=== PATIENT | male | born 1955 | race Caucasian/White ===

== ENCOUNTER 2017-06-28 10:07 | Day surgery (SDC) | payer OTHER ==
[~2017-06-28] VITALS: Ht 162.6 cm; Wt 90.0 kg
[~2017-06-28 10:07] MED LIST: ASPI-306; CALC1TAB32; CARV6.2579; CEPH500C PO; ESOM40CA; FENO145T25; FURO20TA3; GABAPENTIN; HYDR-906 PO; INSU100I28; ISOS60TA52; LINA1TAB5; MELO-110; RANO500T2; REPA1TAB14; SIMV-39; TAMS-14; VALS80TA2 PO
[2017-06-28 10:52] VITALS: Ht 162.6 cm; Wt 90.0 kg
[2017-06-28] MEDS ORDERED: AMLO5TAB4 PO (10:52)
[2017-06-28] MEDS ORDERED: ASPI325T4 PO (10:53)
[2017-06-28] MEDS ORDERED: CARV6.25 PO (10:54)
[2017-06-28 10:55] VITALS: BP 141/68; PULSE 65; RESP 18
[2017-06-28] MEDS ORDERED: ESOM40CA PO (10:55)
[2017-06-28] MEDS ORDERED: FURO20TA3 PO (10:55)
[2017-06-28] MEDS ORDERED: GLYB5TAB3 PO (10:56)
[2017-06-28] MEDS ORDERED: NPH,100V SQ (10:57)
[2017-06-28] MEDS ORDERED: ISOS5TAB2 PO (10:58)
[2017-06-28] MEDS ORDERED: LANT3I SC (10:58)
[2017-06-28] MEDS ORDERED: LOSA100T7 PO (10:59)
[2017-06-28] MEDS ORDERED: MTF1000T PO (10:59)
[2017-06-28] MEDS ORDERED: MELO-109 PO (10:59)
[2017-06-28] MEDS ORDERED: CALC500T11 PO (11:00)
[2017-06-28] MEDS ORDERED: SIMV40TA2 PO (11:01)
[2017-06-28] MEDS ORDERED: TAMS0.4C2 PO (11:02)
[2017-06-28 11:09] LABS: BASOPHILS % 0.4 % (0.0-2.0); EOSINOPHILS # 0.1 10^3/ul (0.0-0.5); EOSINOPHILS % 1.2 % (0.0-7.0); HEMOGLOBIN 14.5 g/dl (14.0-18.0); LYMPHOCYTES # 1.6 10^3/ul (0.8-2.9); LYMPHOCYTES % 18.7 % (15.0-51.0); MEAN CORPUSCULAR HEMOGLOBIN 30.5 pg (29.0-33.0); MEAN CORPUSCULAR HGB CONC 33.7 g/dl (32.0-37.0); MEAN CORPUSCULAR VOLUME 90.5 fl (82.0-101.0); MEAN PLATELET VOLUME 11.6 fl (7.4-10.4); MONOCYTE # 0.5 10^3/ul (0.3-0.9); MONOCYTES % 5.7 % (0.0-11.0); NEUTROPHIL # 6.2 10^3/ul (1.6-7.5); NEUTROPHILS % 73.4 % (39.0-77.0); PLATELET COUNT 148 10^3/UL (140-415); RED BLOOD COUNT 4.75 10^6/ul (4.70-6.10); WHITE BLOOD COUNT 8.4 10^3/ul (4.8-10.8)
[2017-06-28 11:29] LABS: INR 1.04; PROTIME 13.6 Sec (12.2-14.2); PT RATIO 1.1
[2017-06-28 11:30] LABS: PARTIAL THROMBOPLASTIN TIME 31.3 Sec (25.0-35.0)
[2017-06-28 11:32] LABS: ALBUMIN 4.3 g/dl (3.3-4.9); ALBUMIN/GLOBULIN RATIO 1.26; BILIRUBIN,INDIRECT 0.6 mg/dl (0-1.1); BILIRUBIN,TOTAL 0.6 mg/dl (0.2-1.3); TOTAL PROTEIN 7.7 g/dl (6.1-8.1)
[2017-06-28 11:42] LABS: POTASSIUM 4.9 mmol/L (3.5-5.1)
[2017-06-28 11:45] LABS: CALCIUM 9.9 mg/dl (8.4-10.2); CREATININE 1.07 mg/dl (0.61-1.24)
[2017-06-28] MEDS ORDERED: HEPARIN 1000 UNITS/NS (A-LINE) 1,000 ML ONE (11:49)
[2017-06-28] MEDS ORDERED: IODIXANOL LOCM 100 ML BTL ONE (11:49)
[2017-06-28] MEDS ORDERED: HEPARIN 1000 UNITS/ML 10 ML INJ ONE (11:49)
[2017-06-28] MEDS ORDERED: LIDOCAINE 1% (MDV) 20 ML INJ ONE (11:49)
[2017-06-28] MEDS ORDERED: MIDAZOLAM 1 MG/ML 2 ML INJ ONE (11:49)
[2017-06-28] MEDS ORDERED: FENTAnyl 50 MCG/ML VIAL ONE (11:50)
== END 2017-06-28 13:15 | disposition home or self-care (01) ==
LOC: SDS 10:07 → EDBD 10:07 → SDS 13:15
PROVIDERS: ATTEND Surgery
DX: I70.213 Atherosclerosis of native arteries of extremities with intermittent claudication, bilateral legs (principal); Z53.8 Procedure and treatment not carried out for other reasons; I10 Essential (primary) hypertension; E11.9 Type 2 diabetes mellitus without complications; I25.10 Atherosclerotic heart disease of native coronary artery without angina pectoris; Z95.1 Presence of aortocoronary bypass graft
CPT/HCPCS: 80053; 82962; 85025; 85610; 85730; J1644; J2250; J3010; Q9967; Z7610

== ENCOUNTER 2017-07-12 08:39 | Day surgery (SDC) | payer OTHER ==
[~2017-07-12] VITALS: Ht 165.1 cm; Wt 93.0 kg
[2017-07-12] VITALS (11 sets, daily range): BP systolic 107–144; BP diastolic 51–70; PULSE 20–60; RESP 12–21; Ht 165.1 cm; Wt 93.0 kg
[~2017-07-12 08:39] MED LIST changes: +AMLO5TAB4 PO; -ASPI-306; +ASPI325T4 PO; -CALC1TAB32; +CALC500T11 PO; +CARV6.25 PO; -CARV6.2579; -CEPH500C PO; -ESOM40CA; +ESOM40CA PO; -FENO145T25; -FURO20TA3; +FURO20TA3 PO; -GABAPENTIN; +GLYB5TAB3 PO; -HYDR-906 PO; -INSU100I28; +ISOS5TAB2 PO; -ISOS60TA52; +LANT3I SC; -LINA1TAB5; +LOSA100T7 PO; -MELO-110; +MELO-216 PO; +MTF1000T PO; +NPH,100V SQ; -RANO500T2; -REPA1TAB14; -SIMV-39; +SIMV40TA2 PO; -TAMS-14; +TAMS0.4C2 PO; -VALS80TA2 PO
[2017-07-12] MEDS ORDERED: INSULIN ASPART [NOVOLOG] 3 ML PEN SC SCH (10:00)
[2017-07-12 10:03] LABS: BASOPHILS % 0.6 % (0.0-2.0); EOSINOPHILS # 0.1 10^3/ul (0.0-0.5); EOSINOPHILS % 1.7 % (0.0-7.0); HEMATOCRIT 38.9 % (42.0-52.0); HEMOGLOBIN 13.9 g/dl (14.0-18.0); LYMPHOCYTES # 1.7 10^3/ul (0.8-2.9); LYMPHOCYTES % 24.2 % (15.0-51.0); MEAN CORPUSCULAR HEMOGLOBIN 32.3 pg (29.0-33.0); MEAN CORPUSCULAR HGB CONC 35.7 g/dl (32.0-37.0); MEAN CORPUSCULAR VOLUME 90.3 fl (82.0-101.0); MEAN PLATELET VOLUME 11.7 fl (7.4-10.4); MONOCYTE # 0.5 10^3/ul (0.3-0.9); MONOCYTES % 6.9 % (0.0-11.0); NEUTROPHIL # 4.7 10^3/ul (1.6-7.5); PLATELET COUNT 131 10^3/UL (140-415); POSITIVE DIFF @See below; RED BLOOD COUNT 4.31 10^6/ul (4.70-6.10); RED CELL DISTRIBUTION WIDTH 13.3 % (11.5-14.5); WHITE BLOOD COUNT 7.1 10^3/ul (4.8-10.8)
[2017-07-12 10:05] LABS: PROTIME 13.2 Sec (12.2-14.2)
[2017-07-12 10:13] LABS: ALBUMIN 3.7 g/dl (3.3-4.9); ALBUMIN/GLOBULIN RATIO 1.05; BILIRUBIN,INDIRECT 0.1 mg/dl (0-1.1); BILIRUBIN,TOTAL 0.1 mg/dl (0.2-1.3); TOTAL PROTEIN 7.2 g/dl (6.1-8.1)
[2017-07-12 10:20] LABS: CALCIUM 9.7 mg/dl (8.4-10.2); CREATININE 0.92 mg/dl (0.61-1.24); POTASSIUM 3.9 mmol/L (3.5-5.1)
[2017-07-12] MEDS ORDERED: GLUCOSE GEL 15 GRAM TUBE PO PRN ×2 (10:30)
[2017-07-12] MEDS ORDERED: DEXTROSE 50% 50 ML SYRINGE IV PRN ×2 (10:30)
[2017-07-12] MEDS ORDERED: GLUCOSE GEL 15 GRAM TUBE BUCCAL PRN (10:30)
[2017-07-12] MEDS ORDERED: GLUCAGON 1 MG INJ IM PRN (10:30)
[2017-07-12] MEDS ORDERED: LIDOCAINE 1% (MDV) 20 ML INJ ONE (11:02)
[2017-07-12] MEDS ORDERED: HEPARIN 1000 UNITS/ML 10 ML INJ ONE ×2 (11:02→12:57)
[2017-07-12] MEDS ORDERED: MIDAZOLAM 1 MG/ML 2 ML INJ ONE ×3 (11:03→13:47)
[2017-07-12] MEDS ORDERED: FENTAnyl 50 MCG/ML VIAL ONE ×2 (11:03→11:50)
[2017-07-12] MEDS ORDERED: ALTEPLASE 100 MG INJ IV ONE (13:00)
[2017-07-12] MEDS ORDERED: IODIXANOL LOCM 100 ML BTL ONE (13:00)
--- NOTE | 2017-07-12 14:07 | RADRPT ---
Vent Rate: 60 bpm RR Interval: 0 msec ND Interval: 186 msec QRS Duration: 100 msec QT Interval: 402 msec QTC Interval: 402 msec P-R-T [place]: 44 - 42 - 0 degrees Normal sinus rhythm RSR apos; orattern in V1 suggests right ventricular conduction delay T wave abnormality, consider inferior ischemia Abnormal ECG Electronically Signed By: Tejinder Dan [id number]
[2017-07-12] MEDS ORDERED: morphine 10 MG INJ ONE (14:23)
--- NOTE | 2017-07-12 14:36 | SIPON ---
Date/Time of Note Date/Time of Note DATE: 07/12/17 TIME: 14:33 Operative Report Preoperative Diagnosis Severe RLE claudication Postoperative Diagnosis Same Operation/Procedure Performed Aortogram RLE angiogram w/ runoff Atherectomy/angioplasty w/ DCB to R SFA Aspiration of emboli to TPT/PT Stent/angioplasty of R iliac lesions Surgeon Burton Jacob MD occupational therapy assist N/A Anesthesia: moderate sedation Estimated blood loss: 10 - 50 ml's Transfusion Required none Specimen None Grafts/Implants none Complications none BURTON JACOB MD Jul 12, 2017 14:36
[2017-07-12] MEDS ORDERED: SOD CHLORIDE 0.45% 1,000 ML IV SCH (14:45)
[2017-07-12] MEDS ORDERED: ONDANSETRON 4 MG INJ IV PRN (15:00)
[2017-07-12] MEDS ORDERED: ACETAMINOPHEN 325 MG TAB PO PRN (15:00)
--- NOTE | 2017-07-13 09:16 | OPR ---
DATE OF OPERATION: 07/12/2017 PREOPERATIVE DIAGNOSIS: Severe right lower extremity claudication. POSTOPERATIVE DIAGNOSIS: Severe right lower extremity claudication. PROCEDURE: 1. Aortogram. 2. Right lower extremity angiogram with runoff, third order. 3. Atherectomy and angioplasty with drug-coated balloon of entire superficial femoral artery on the right. 4. Stenting of the right common and external iliac arteries. 5. Aspiration of distal emboli in the tibial vessels. SURGEON: Italo Parker M.D. ANESTHESIA: Monitored sedation and local. ESTIMATED BLOOD LOSS: 50 mL. SPECIMENS: None. COMPLICATIONS: Appearance of possible distal emboli in the tibial vessels, likely from drug coating of the drug-coated balloon. This was resolved after aspiration. ANGIOGRAPHIC FINDINGS: 1. Patent infrarenal aorta with diffuse calcified disease. 2. Patent left common and external iliac artery stents. 3. Patent, but severely diseased, distal common iliac and entire external iliac arteries on the right. 4. Patent common femoral artery with notable prior patch. 5. Severely diseased profunda femoral artery. 6. Diffuse severe disease of the right superficial femoral artery from its origin down to the level of the adductor. 7. Patent popliteal artery with moderate disease. 8. Patent tibioperoneal trunk with peroneal artery that is markedly small. 9. Patent posterior tibial artery with proximal disease and small caliber, but this makes it to the foot as a very small diseased plantar artery. 10. The anterior tibial artery is completely occluded. 11. Flow was markedly improved post intervention. PREOPERATIVE INDICATIONS: This is a 61-year-old gentleman with multiple medical conditions including severe peripheral vascular disease with previous interventions including bilateral femoral endarterectomies with left iliac artery stenting. The patient's symptoms improved; however, his right lower extremity symptoms recurred. The patient still smokes, but he is attempting diet and weight loss. Consistent exercise regimen with increased walking has failed. The patient now presents for angiogram with possible intervention. The indications, risks, and benefits of the procedure were discussed with the patient who understood and agreed to proceed. DESCRIPTION OF PROCEDURE: The patient was properly identified, brought to the angiography suite, and placed in the supine position. The patient's bilateral groins were prepped and draped in the usual sterile fashion. The patient was induced with monitored sedation throughout the entire course of the procedure. Ultrasound was used to evaluate the left common femoral artery. It was noted to be widely patent without any disease, given that he had a prior endarterectomy on this side. A micropuncture needle was used to access the artery; however, the MicroSheath was unable to be tracked. Therefore, the needle was removed and manual pressure was applied for hemostasis. Afterwards, a standard 18-gauge Access needle was used to access the area under ultrasound guidance. A Bentson wire was then advanced into the iliac system under fluoroscopy. A 5-Indonesian sheath was unable to be tracked; therefore, a 6-Ind[place]ian dilator was advanced and a 6- Indonesian sheath was successfully placed. This was followed by a flush catheter that was advanced into the infrarenal aorta. Aortogram was then performed with the findings as above. An angled Glidewire was then advanced and used to select the right iliac system with the flush catheter. The flush catheter was then exchanged for an angled glide catheter. The angled glide catheter was then placed into the right external iliac artery. The right lower extremity angiogram was then performed, with findings as above. Given these findings, intervention was planned. An 0.035 Advantage wire was then advanced through the glide catheter and a long 6-Indonesian sheath was then advanced. The patient was heparinized with 9000 units of heparin and after an hour 3000 units of additional heparin was administered. Next, using a floppy Glidewire and an angled glide catheter, the SFA lesions were traversed throughout and the catheter was placed in the popliteal artery. This was confirmed on angiography. Next, the 0.035 wire was exchanged for an 0.014 CrossIt wire. This was placed into the below-knee popliteal artery. A 2.2 [place] atherectomy device was then advanced and used for atherectomy with 2 passes throughout the entire length of the SFA. Afterwards, a 5-mm by various lengths drug-coated balloons for a total of 3 balloons were used to angioplasty the entire length of the atherectomized areas. Completion angiography demonstrated marked improvement in diameter and flow at the superficial femoral artery. The [id number]-rka-[id number] arterial flow was also improved; however, there was noted to be more sluggish flow in the posterior tibial artery than at the beginning of the procedure. Therefore, there was suspicion of possible emboli distally to this area. Thus, the 0.014 wire was then re- advanced and used to select initially the peroneal artery and an 0.014 rapid exchange portal Aspiration catheter was then advanced. This was used to aspirate the potential emboli from the peroneal and tibioperoneal trunk. Afterwards, the wire was used to select the posterior tibial artery after exchange with the 0.014 catheter. The portal device was then advanced to the mid posterior tibial artery and used for aspiration as well. With aspiration, there was retrieval of some white flaky material that appeared to resemble possibly the drug-coating of the drug- coated balloons. There was no thrombus that was noted. After this, there was noted to be still a significant lesion at the takeoff of the posterior tibial artery; however, the flow was improved and there was in-line flow down to the leg otherwise. The decision was made not to intervene at this artery currently given the patient's symptoms of only severe claudication. At this point, the devices were retracted and decision was made not to intervene on the profunda artery currently; however, the iliac artery stenosis needed to be treated. Therefore, the 0.035 Advantage wire was then re-advanced over the sheath. This was done after the devices were removed. This sheath was retracted back into the proximal right common iliac artery. Angiography confirmed the location and the size of the vessels. A 7-mm x 100 mm self-expanding stent was then deployed into the external iliac and into the area of the very distal common iliac artery. This was at the transition site. Next, an 8 x 40 mm balloon expandable stent was then advanced more proximally with a small overlap to the 7 mm stent. This was deployed successfully and afterwards a 10-mm balloon was used to over dilate the stent to get a larger size. An 8 x 100 mm balloon was then advanced into the 7-mm stent for post-dilation. Completion angiography demonstrated marked improvement in lumen diameter and flow. There were no other further issues. The devices were removed and the sheath was retracted into the right iliac system. The wire was re-advanced into the infrarenal aorta. Angiogram of the left femoral access site demonstrated it was amenable to a closure device; therefore, an Angio-Seal closure device was exchanged for the sheath and deployed, with good hemostasis. The patient tolerated the procedure well without any immediate complications. Dictated By: Itaol Parker M.D. /delbert/jenna /Document#: [id number] MTDD
== END 2017-07-12 18:05 | disposition home or self-care (01) ==
LOC: SDS 08:39
PROVIDERS: ATTEND Surgery
DX: I70.213 Atherosclerosis of native arteries of extremities with intermittent claudication, bilateral legs (principal); I25.10 Atherosclerotic heart disease of native coronary artery without angina pectoris; Z95.1 Presence of aortocoronary bypass graft; E11.9 Type 2 diabetes mellitus without complications; I10 Essential (primary) hypertension; F17.210 Nicotine dependence, cigarettes, uncomplicated; I74.3 Embolism and thrombosis of arteries of the lower extremities
CPT/HCPCS: 37186; 37221; 37223; 37225; 75625; 75710; 80053; 82962; 85025; 85610; 85730; 93005; J1644; J1815; J2250; J2270; J2997; J3010; Q9967; Z7610

== ENCOUNTER → 2018-11-25 | Outpatient (CLI) | payer OTHER ==
[~2018-11-25] MED LIST changes: +ASPI325T30 PO; -ASPI325T4 PO; +BARIUM SULFATE 135 ML (E-Z HD) PO ONE; +LOSA100T15 PO; -LOSA100T7 PO; -MELO-216 PO; +MELO7.5T38 PO; +SIMETH/SOD BICARB/CIT AC PKT (E-Z- GAS II) PO ONE
== END | disposition home or self-care (01) ==
LOC: RAD 09:39
PROVIDERS: ATTEND Internal Medicine Gastroenterology
DX: R13.10 Dysphagia, unspecified (principal)
CPT/HCPCS: 74230; Z7610

== ENCOUNTER 2019-01-07 08:38 | Day surgery (SDC) | payer OTHER ==
[2019-01-07] VITALS (16 sets, daily range): BP systolic 110–190; BP diastolic 54–70; PULSE 52–69; RESP 11–29; Ht 162.6 cm; Wt 96.1 kg
[~2019-01-07] VITALS: Ht 162.6 cm; Wt 96.1 kg
[~2019-01-07 08:38] MED LIST changes: -BARIUM SULFATE 135 ML (E-Z HD) PO ONE; +CIPRO 400 MG/200 ML D5W IVPB ONE; +CIPROFLOXACIN 400 MG in D5W 200 ML IVPB SCH; -SIMETH/SOD BICARB/CIT AC PKT (E-Z- GAS II) PO ONE
[2019-01-07] MEDS ORDERED: TAMS0.4C2 PO (09:19)
[2019-01-07] MEDS ORDERED: OMEP20CA16 PO (09:19)
[2019-01-07] MEDS ORDERED: AMLO-147 PO (09:20)
[2019-01-07] MEDS ORDERED: ESOM40CA PO (09:20)
[2019-01-07] MEDS ORDERED: CARV12.579 PO (09:20)
[2019-01-07] MEDS ORDERED: RANO10002 PO (09:21)
[2019-01-07] MEDS ORDERED: INSU100I33 SC (09:21)
[2019-01-07] MEDS ORDERED: BRIM15DR7 RIGHT EYE (09:22)
[2019-01-07] MEDS ORDERED: GABA100C14 PO (09:22)
[2019-01-07] MEDS ORDERED: LOSA1TAB25 PO (09:23)
[2019-01-07] MEDS ORDERED: SIMV40TA2 PO (09:23)
[2019-01-07] MEDS ORDERED: ESCI10TA PO (09:23)
[2019-01-07] MEDS ORDERED: METF850T13 PO (09:24)
[2019-01-07] MEDS ORDERED: UMEC62.5 IH (09:25)
[2019-01-07] MEDS ORDERED: CLOP75TA27 PO (09:25)
[2019-01-07] MEDS ORDERED: ASPI81TA52 PO (09:26)
--- NOTE | 2019-01-07 10:28 | HPN ---
Date/Time of Note Date/Time of Note DATE: 01/07/19 TIME: 10: Interval H&P Admission Note Pt. seen H&P reviewed: No system changes CARLOS GARRETT Jan 07, 2019 10:28
--- NOTE | 2019-01-07 10:36 | OPR ---
Date/Time of Note Date/Time of Note DATE: 01/07/19 TIME: 10:34 Operative Report Procedure Date: Jan 07, 2019 Preoperative Diagnosis BPH Postoperative Diagnosis Same Operation/Procedure Performed TURP Surgeon Deandre Porter Bath None Anesthesia Type: general Anesthesiologist: Elfego Arceo M.D. Estimated Blood Loss: none Transfusion none Specimen prostate Grafts/Implants none Tubes/Drains [address] Complications none Pt Condition Post Procedure: stable Disposition: PACU Indications [facility] Procedure Description dict [id number] CARLOS GARRETT Jan 07, 2019 10:36
--- NOTE | 2019-01-07 10:43 | PREAC ---
Date/Time of Note Date/Time of Note DATE: 01/07/19 TIME: 10:40 Anesthesia Eval and Record Evaluation Time Pre-Procedure Interview DATE: 01/07/19 TIME: 10:40 Age 63 Sex male NPO: 8 hrs Preoperative diagnosis Bladder Tumor Planned procedure Cystoscopy and TURBT Past Medical History Past Medical History: Includes Cardio: HTN, Dyslipidemia Endo: Diabetes GI: Obesity Surgery & Anesthesia Issues No known issue Meds Anticoagulation: No Beta Favian within 24 hr: Yes Reported Medications Aspirin (Low Dose Aspirin) 81 Mg Tablet.dr, 81 MG PO DAILY, #30 TAB 01/07/19 Clopidogrel Bisulfate (Clopidogrel) 75 Mg Tablet, 75 MG PO DAILY, #30 TAB 01/07/19 Umeclidinium [place] (Incruse Ellipta) 62.5 Mcg Blst.w.dev, 62.5 MCG IH DAILY 01/07/19 Metformin Hcl* (Metformin Hcl*) 850 Mg Tablet, 850 MG PO WITH BREAKFAST DINNE, #60 TAB 01/07/19 Simvastatin* (Zocor*) 40 Mg Tablet, 40 MG PO QHS, #30 TAB 01/07/19 Losartan-Hydrochlorothiazide (Losartan-HCTZ) 100-25 Mg Tab, 1 TAB PO DAILY, TAB 01/07/19 Escitalopram Oxalate* (Lexapro*) 10 Mg Tablet, 10 MG PO DAILY, #30 TAB 01/07/19 Gabapentin* (Gabapentin*) 100 Mg Capsule, 100 MG PO QHS, #90 CAP 01/07/19 Brimonidine Tartrate* (Brimonidine Tartrate*) 0.2%-15ML Drop Opht, 1 DROP RIGHT EYE BID, #1 EA 01/07/19 Insulin Glargine,Hum.rec.anlog (Basaglar Kwikpen U-100) 100 Unit/1 Ml Insuln.pen, 50 UNIT SC QHS, EA 01/07/19 Ranolazine* (Ranexa*) 1,000 Mg Tab.sr.12h, 1000 MG PO Q12, TAB 01/07/19 Carvedilol* (Carvedilol*) 12.5 Mg Tablet, 12.5 MG PO BID, #60 TAB 01/07/19 Amlodipine Besylate* (Amlodipine Besylate*) 10 Mg Tablet, 10 MG PO DAILY, #30 TAB 01/07/19 Esomeprazole Mag Trihydrate (Nexium) 40 Mg Capsule.dr, 40 MG PO DAILY, #30 CAP 01/07/19 Omeprazole* (Omeprazole*) 20 Mg Capsule.dr, 20 MG PO DAILY, #30 CAP 01/07/19 Tamsulosin Hcl* (Tamsulosin Hcl*) 0.4 Mg Cap.er.24h, 0.4 MG PO HS, CAP 01/07/19 Discontinued Reported Medications Tamsulosin Hcl* (Tamsulosin Hcl*) 0.4 Mg Cap.er.24h, 0.4 MG PO HS, CAP 06/28/17 Simvastatin* (Zocor*) 40 Mg Tablet, 40 MG PO QHS, #30 TAB 06/28/17 Calcium Carbonate (Oysco-500) 500 Mg Tablet, 500 MG PO BID, TAB 06/28/17 Metformin* (Glucophage*) 1,000 Mg Tablet, 1000 MG PO BID, #60 TAB 06/28/17 Meloxicam* (Meloxicam*) 7.5 Mg Tablet, 15 MG PO DAILY, #30 TAB 06/28/17 Losartan Potassium* (Losartan Potassium*) 100 Mg Tablet, 100 MG PO DAILY, TAB 06/28/17 Insulin Glargine* (Lantus*) 100 Unit/Ml Soln, 0 SC DAILY, #1 VIAL SLIDING SCALE 06/28/17 Isosorbide Dinitrate* (Isosorbide Dinitrate*) 5 Mg Tablet, 5 MG PO DAILY, TAB 06/28/17 Insulin NPH Human Isophane (Humulin N) 100 Unit/1 Ml Vial, 0 SQ AC MEALS, VIAL SLIDING SCALE 06/28/17 Glyburide* (Glyburide*) 5 Mg Tablet, 5 MG PO DAILY, #30 TAB 06/28/17 Furosemide* (Furosemide*) 20 Mg Tablet, 20 MG PO DAILY, #60 TAB 06/28/17 Esomeprazole Mag Trihydrate (Nexium) 40 Mg Capsule.dr, 40 MG PO DAILY, #30 CAP 06/28/17 Carvedilol* (Coreg*) 6.25 Mg Tablet, 6.25 MG PO BID, #60 TAB 06/28/17 Aspirin* (Aspirin*) 325 Mg Tablet, 325 MG PO DAILY, TAB 06/28/17 Amlodipine Besylate* (Norvasc*) 5 Mg Tablet, 5 MG PO DAILY, TAB 06/28/17 Current Medications Ciprofloxacin/ Dextrose 200 ml @ 200 mls/hr PREOP IVPB ; Start 01/07/19 at 06:00; Stop 01/07/19 at 19:00 Meds reviewed: Yes Allergies Coded Allergies: No Known Drug Allergy (Verified Allergy, Unknown, 01/07/19) Allergies Reviewed: Yes Labs/Studies Labs Reviewed: Reviewed by anesthesiologist test: N/A Studies: ECG (NSR), CXR (No Acute Disease) Pre-procedure Exam Last vitals Vital Signs Date Temp Pulse Resp B/P (MAP) Pulse Ox O2 O2 Flow FiO2 Time Delivery Rate 01/07/19 97.2 16 144/70 98 10:10 (94) Airway: Adequate mouth opening, Adequate thyromental dist Mallampati: Mallampati III Teeth: Normal Lung: Normal Heart: Normal ASA Physical Status ASA physical status: 3 Emergency: None Planned Anesthetic General/MAC: ETT Planned Pain Management Parenteral pain med Pre-operative Attestations Prior to commencing anesthesia and surgery, the patient was re-evaluated, there was verification of: *The patient's identity *The results of appropriate recent lab work and preoperative vital signs *The above evaluation not changing prior to induction *Anesthetic plan, risk benefits, alternative and complications discussed with patient/family; questions answered; patient/family understands, accepts and wishes to proceed. THONY MARTINEZ MD Jan 07, 2019 10:43
[2019-01-07] MEDS ORDERED: ETOMIDATE 20 MG INJ ONE (10:57)
[2019-01-07] MEDS ORDERED: ROCURONIUM 50 MG INJ ONE (10:57)
[2019-01-07] MEDS ORDERED: MIDAZOLAM 1 MG/ML 2 ML INJ ONE (10:59)
[2019-01-07] MEDS ORDERED: FENTAnyl 50 MCG/ML VIAL ONE (10:59)
[2019-01-07] MEDS ORDERED: hydrALAzine 20 MG INJ ONE (11:07)
[2019-01-07] MEDS ORDERED: KETOROLAC 30 MG INJ ONE (11:34)
[2019-01-07] MEDS ORDERED: ONDANSETRON 4 MG INJ ONE (11:34)
[2019-01-07] MEDS ORDERED: SUGAMMADEX SODIUM 200 MG/2 ML VIAL IV ONE (11:34)
[2019-01-07] MEDS ORDERED: DEXAMETHASONE 4 MG/ML 5 ML INJ ONE (11:34)
[2019-01-07] MEDS ORDERED: METOCLOPRAMIDE 10 MG INJ ONE (11:34)
--- NOTE | 2019-01-07 11:50 | PAC ---
Date/Time of Note Date/Time of Note DATE: 01/07/19 TIME: 11:50 Post-Anesthesia Notes Post-Anesthesia Note Last documented vital signs Vital Signs Date Temp Pulse Resp B/P (MAP) Pulse Ox O2 O2 Flow FiO2 Time Delivery Rate 01/07/19 97.6 69 16 144/70 98 10:10 (94) Activity: WNL Respiratory function: WNL Cardiovascular function: WNL Mental status: Baseline Pain reasonably controlled: Yes Hydration appropriate: Yes Nausea/Vomiting absent: Yes THONY MARTINEZ MD Jan 07, 2019 11:50
[2019-01-07] MEDS ORDERED: EPHEDrine SULFATE 50 MG/5 ML SYG IV PRN (12:00)
[2019-01-07] MEDS ORDERED: DIPHENHYDRAMINE 50 MG INJ IV PRN (12:00)
[2019-01-07] MEDS ORDERED: MITOMYCIN 20 MG IRR SCH (12:00)
[2019-01-07] MEDS ORDERED: MITOMYCIN 40 MG VIAL IRR SCH (12:00)
[2019-01-07] MEDS ORDERED: MEPERIDINE 25 MG INJ IV PRN (12:00)
[2019-01-07] MEDS ORDERED: LABETALOL HCL 20MG INJ IV PRN (12:00)
[2019-01-07] MEDS ORDERED: ONDANSETRON 4 MG INJ IV PRN (12:00)
[2019-01-07] MEDS ORDERED: hydrALAzine 20 MG INJ IV PRN (12:00)
[2019-01-07] MEDS ORDERED: FENTAnyl 50 MCG/ML VIAL IV PRN ×3 (12:00)
[2019-01-07] MEDS ORDERED: HYDROmorphONE 1 MG/5 ML IV SYRINGE IV PRN ×3 (12:00)
[2019-01-07] MEDS ORDERED: HYDROmorphONE 1 MG/5 ML IV SYRINGE IV ONE (12:10)
--- NOTE | 2019-01-07 12:33 | PDOCDIS ---
Discharge Instructions DIAGNOSIS Discharge Diagnosis Bladder Cancer CONDITION Veronica Patient Condition: [id number] Fair HOME CARE INSTRUCTIONS: Veronica Diet Instructions: João Reduced Sodium ACTIVITY: Veronica Activity Restrictions: [id number] Slowly Increase Activity [id number] Bathing Restrictions: [id number] Shower FOLLOW UP/APPOINTMENTS Follow-up Plan Call office for date and time to remove franklin next week REFERRALS Veronica Referring Provider: CARLOS Perdue Other Referrals none OTHER ORDERS: Other Orders: Franklin to leg bag Resume aspirin and plavix in am as long as urine is clear, call office for any questions or concerns CARLOS GARRETT Jan 07, 2019 12:33
--- NOTE | 2019-01-07 12:36 | OPR ---
Date/Time of Note Date/Time of Note DATE: 01/07/19 TIME: 12:34 Operative Report Procedure Date: Jan 07, 2019 Preoperative Diagnosis Bladder cancer Postoperative Diagnosis same Operation/Procedure Performed TURBT and mitomycin Surgeon satish Single Corner Cutter jackie Anesthesia Type: general Estimated Blood Loss: none Transfusion none Specimen bladder tumor Grafts/Implants none Tubes/Drains [address] Complications none Pt Condition Post Procedure: stable Disposition: PACU Indications bladder cancer Procedure Description dict [id number] CARLOS GARRETT Jan 07, 2019 12:36
--- NOTE | 2019-01-07 14:36 | OPR ---
DATE OF OPERATION: PREOPERATIVE DIAGNOSIS: Bladder cancer. POSTOPERATIVE DIAGNOSIS: Bladder cancer. PROCEDURES: Cystoscopy, transurethral resection of large bladder tumor and multiple satellite bladde r tumors, instillation of mitomycin. SURGEON: Av Garrett MD ANESTHESIA: General. COMPLICATIONS: None. FINDINGS: Large bladder tumor on the trigone extending to the posterior wall with multiple satellite bladder tumor surrounding this region. PATHOLOGY: Bladder tumor. COMPLICATIONS: None. DRAINS: A 20-[place] 2-way Rich catheter. PROCEDURE IN DETAILS: The patient was brought into the operating room and placed on the operating ro om table in the supine lithotomy position. He was prepped and draped in the usual fashion after anes thesia was induced. A timeout was undertaken. Appropriate pressure points were padded. He received preoperative antibiotic therapy. Sequential compression devices were applied. Rigid cystoscopy was undertaken with a 12-degree, 30-degree and 70-degree angle lens. No abnormalities of the anterior u rethra could be appreciated. Trilobar enlargement of the prostatic lobes was noted with a very elong ated prostatic fossa. It was difficult to insert the rigid cystoscope into the bladder due to morbid obesity and enlarged median lobe with high bladder neck. With gentle manipulation, this was inserte d in an atraumatic fashion. The bladder was then inspected in a systematic fashion. Due to marked t rabeculation, I could not find the ureteral orifices. The trigone extending to the posterior wall wa s a large papillary bladder tumor with multiple satellite tumors adjacent to this area. No other juanpablo dder cancer could be appreciated. Transurethral resection of the bladder tumor was undertaken with t he unipolar resectoscope. Tissue was excised with large portion of the tissue also being coagulated with cauterization so as not to cause a perforation when the bladder of tumor was resected and coagul ated down to its base. Pinpoint hemostasis was obtained. No noted perforation could be appreciated. There was no active bleeding. Subsequently, the chips were removed with an ShopSuey evacuator and 2-w ay Rich catheter was inserted and the efflux was crystal clear. Subsequently, 40 mg of mitomycin wa s then instilled into the bladder and the catheter was clamped. This will be retained was 40 minutes . He will be then discharged to home on [place] 5/325 one tab p.o. q.6 hours p.r.n., dispensed # 30, n o refill. He will follow up in the office on Saturday for a trial of void. Further intervention evalu ation pending clinical course and results of above. Additionally, the patient has been instructed to resume his Plavix and aspirin in the morning time. Dictated By: AV GARRETT MD EGR/NTS Conf#: [id number] DID#: [id number]
== END 2019-01-07 14:41 | disposition home or self-care (01) ==
LOC: SDS 08:38
PROVIDERS: ATTEND Urology
DX: C67.9 Malignant neoplasm of bladder, unspecified (principal); I10 Essential (primary) hypertension; E11.9 Type 2 diabetes mellitus without complications; E78.5 Hyperlipidemia, unspecified; E66.9 Obesity, unspecified
CPT/HCPCS: 52234; 82962; 88305; J0360; J0744; J1100; J1170; J1885; J2250; J2405; J2765; J3010; J9280; Z7512; Z7610

== ENCOUNTER 2019-06-12 06:34 | Observation (INO) | payer OTHER ==
[~2019-06-12] VITALS: Ht 165.1 cm; Wt 92.7 kg
[2019-06-12] VITALS (26 sets, daily range): BP systolic 110–159; BP diastolic 61–80; PULSE 52–97; RESP 13–20; Ht 165.1 cm; Wt 92.7 kg
[~2019-06-12 06:34] MED LIST changes: +AMLO-147 PO; -AMLO5TAB4 PO; -CALC500T11 PO; +CARV12.579 PO; -CARV6.25 PO; -CIPRO 400 MG/200 ML D5W IVPB ONE; -CIPROFLOXACIN 400 MG in D5W 200 ML IVPB SCH; +CLOP75TA27 PO; +ESCI10TA PO; -ESOM40CA PO; -GLYB5TAB3 PO; +IBUP-1542 PO; +INSU100I33 SC; -ISOS5TAB2 PO; -LANT3I SC; -LOSA100T15 PO; -MELO7.5T38 PO; +METF850T13 PO; -MTF1000T PO; -NPH,100V SQ; +RANO10002 PO; -TAMS0.4C2 PO; +TEMA15CA PO; +UMEC62.5 IH
[2019-06-12] MEDS ORDERED: CEFTRIAXONE 1 GM/NS 50 ML IVPB ONE (07:00)
[2019-06-12] MEDS ORDERED: OXYCODONE/ACETAMINOPHEN (5/325) TAB PO PRN (08:00)
[2019-06-12] MEDS ORDERED: hydrALAzine 20 MG INJ IV PRN ×2 (08:00→14:00)
[2019-06-12] MEDS ORDERED: MEPERIDINE 25 MG INJ IV PRN (08:00)
[2019-06-12] MEDS ORDERED: EPHEDrine 25 MG/5 ML SYG IV PRN (08:00)
[2019-06-12] MEDS ORDERED: HYDROmorphONE 1 MG/5 ML IV SYRINGE IV PRN (08:00)
[2019-06-12] MEDS ORDERED: FENTAnyl 50 MCG/ML VIAL IV PRN (08:00)
[2019-06-12] MEDS ORDERED: LABETALOL HCL 20MG INJ IV PRN (08:00)
[2019-06-12] MEDS ORDERED: MIDAZOLAM 1 MG/ML 2 ML INJ IV PRN (08:00)
[2019-06-12] MEDS ORDERED: ONDANSETRON 4 MG INJ IV PRN ×2 (08:00→14:00)
[2019-06-12] MEDS ORDERED: DIPHENHYDRAMINE 50 MG INJ IV PRN (08:00)
[2019-06-12] MEDS ORDERED: ONDANSETRON 4 MG INJ ONE (08:06)
[2019-06-12] MEDS ORDERED: CEFAZOLIN 1 GM INJ ONE (08:06)
[2019-06-12] MEDS ORDERED: DEXAMETHASONE 4 MG/ML 5 ML INJ ONE (08:06)
[2019-06-12] MEDS ORDERED: EPHEDrine 25 MG/5 ML SYG ONE (08:06)
[2019-06-12] MEDS ORDERED: SUCCINYLCHOLINE CHLORIDE 100 MG/5 ML SYG IV ONE (08:06)
[2019-06-12] MEDS ORDERED: LIDOCAINE 2% (SDV) 5 ML INJ ONE (08:06)
[2019-06-12] MEDS ORDERED: PROPOFOL 200 MG INJ ONE (08:06)
[2019-06-12] MEDS ORDERED: ROCURONIUM 50 MG INJ ONE (08:06)
[2019-06-12] MEDS ORDERED: FENTAnyl 50 MCG/ML VIAL ONE (08:06)
[2019-06-12] MEDS ORDERED: MIDAZOLAM 1 MG/ML 2 ML INJ ONE (08:06)
[2019-06-12] MEDS ORDERED: METHYLENE BLUE 50 MG/10 ML AMPUL ONE (08:34)
[2019-06-12] MEDS ORDERED: SUGAMMADEX SODIUM 200 MG/2 ML VIAL IV ONE (10:34)
[2019-06-12] MEDS ORDERED: DEXTROSE 5%-0.45% NACL 1,000 ML IV SCH (10:47)
[2019-06-12] MEDS: HYDROmorphONE 1 MG/5 ML IV SYRINGE IV PRN ×2 (11:18→11:44)
[2019-06-12] MEDS ORDERED: CEFTRIAXONE 1 GM INJ IVPB SCH (12:00)
[2019-06-12] MEDS ORDERED: CEFTRIAXONE 1 GM/NS 50 ML IVPB SCH (14:00)
[2019-06-12] MEDS ORDERED: AMLODIPINE 10 MG TAB PO SCH (14:00)
[2019-06-12] MEDS ORDERED: SOD CHLORIDE 0.9% 1,000 ML IV SCH (14:00)
[2019-06-12] MEDS ORDERED: NICOTINE (21 MG/24 HR) PATCH TRANSDERM PRN (14:30)
[2019-06-12] MEDS ORDERED: ZOLPIDEM 5 MG TAB PO PRN (15:00)
[2019-06-12] MEDS: LISINOPRIL 5 MG TAB PO SCH (16:35)
[2019-06-12] MEDS: [UNRECOGNIZED DRUG - OTHER] XX SCH (17:30)
[2019-06-12] MEDS: UMECLIDINIUM BROMIDE 62.5 MCG XX SCH (17:30)
[2019-06-12] MEDS: INSULIN ASPART [NOVOLOG] 3 ML PEN SC SCH ×3 (18:29→21:00)
[2019-06-12] MEDS ORDERED: INSULIN GLARGINE [LANTus] (100 UNITS/ML) SYG SC SCH (20:00)
[2019-06-12] MEDS: RANOLAZINE (SR) 500 MG TAB PO SCH (21:00)
[2019-06-12] MEDS ORDERED: ATORVASTATIN 20 MG TAB PO SCH (21:00)
[2019-06-13 00:10] VITALS: BP 134/62; PULSE 60; RESP 16
[2019-06-13] MEDS: [UNRECOGNIZED DRUG - OTHER] XX SCH (00:43)
[2019-06-13] MEDS: UMECLIDINIUM BROMIDE 62.5 MCG XX SCH (00:43)
[2019-06-13] MEDS ORDERED: ACCU-CHEK XX SCH (02:00)
[2019-06-13 07:42] VITALS: BP 135/64; PULSE 60; RESP 18
[2019-06-13] MEDS: INSULIN ASPART [NOVOLOG] 3 ML PEN SC SCH ×2 (07:50)
[2019-06-13] MEDS: LISINOPRIL 5 MG TAB PO SCH (08:23)
[2019-06-13] MEDS ORDERED: FUROSEMIDE 20 MG TAB PO SCH (09:00)
[2019-06-13] MEDS ORDERED: ESCITALOPRAM 10 MG TAB PO SCH (09:00)
[2019-06-13] MEDS ORDERED: NON-FORMULARY/PATIENT OWN MED (Umeclidinium Bromide (Incruse Ellipta) 62.5 MCG) IH SCH (09:00)
[2019-06-13] MEDS: RANOLAZINE (SR) 500 MG TAB PO SCH (09:35)
== END 2019-06-13 11:58 | disposition home or self-care (01) ==
LOC: SDS 06:34 → REC 10:51 → SDS 10:51 → INTOOBSV 10:51 → MS1 12:54
PROVIDERS: ADMIT Urology; ATTEND Family Medicine
DX: C61 Malignant neoplasm of prostate (principal); C67.9 Malignant neoplasm of bladder, unspecified; E11.9 Type 2 diabetes mellitus without complications; I10 Essential (primary) hypertension; N40.0 Benign prostatic hyperplasia without lower urinary tract symptoms; E78.5 Hyperlipidemia, unspecified; E66.9 Obesity, unspecified; Z68.34 Body mass index [BMI] 34.0-34.9, adult; Z79.4 Long term (current) use of insulin; Z79.82 Long term (current) use of aspirin
CPT/HCPCS: 80048; 80061; 82962; 83036; 85025; 87086; 88305; 88307; 99217; G0378; J0690; J0696; J1100; J1170; J1815; J2250; J2405; J3010; J7030; J7042; Q9968